=== PATIENT | female | born 1945 | race Caucasian/White ===

== ENCOUNTER 2017-03-04 11:12 | Emergency (ER) | payer MEDICARE, BC ==
[~2017-03-04] VITALS: Ht 167.6 cm; Wt 50.0 kg
[2017-03-04 11:16] VITALS: Ht 167.6 cm; Wt 50.0 kg
[2017-03-04] MEDS ORDERED: SODIUM CHLORIDE 0.9% 1L BAG IV* STA (14:33)
[2017-03-04] MEDS ORDERED: RIFA550T4 PO (14:42)
[2017-03-04] MEDS ORDERED: ARMO250T4 PO (14:42)
[2017-03-04] MEDS ORDERED: MEMA28CA PO (14:42)
[2017-03-04] MEDS ORDERED: ASPI325T4 PO (14:42)
[2017-03-04] MEDS ORDERED: NITR-58 PO (14:43)
[2017-03-04] MEDS ORDERED: DULO60CA6 PO (14:44)
[2017-03-04] MEDS ORDERED: HIPR1 PO (14:44)
[2017-03-04] MEDS ORDERED: EZET10TA3 PO (14:45)
[2017-03-04] MEDS ORDERED: PRAV10TA43 PO (14:45)
[2017-03-04] MEDS ORDERED: LORA-186 PO (14:46)
[2017-03-04] MEDS ORDERED: PRAM1.5T8 PO (14:46)
[2017-03-04] MEDS ORDERED: BEN50 PO (14:47)
[2017-03-04] MEDS ORDERED: DOCU-144 PO (14:47)
[2017-03-04 15:00] LABS: ADD SCAN DIFF NO
[2017-03-04 15:01] LABS: BASOPHILS % 0.3 % (0.0-2.0); EOSINOPHILS % 0.2 % (0.0-7.0); LYMPHOCYTES # 1.6 10^3/ul (0.8-2.9); LYMPHOCYTES % 17.2 % (15.0-51.0); MEAN CORPUSCULAR HGB CONC 30.6 g/dl (32.0-37.0); MEAN CORPUSCULAR VOLUME 91.6 fl (82.0-101.0); MEAN PLATELET VOLUME 10.9 fl (7.4-10.4); MONOCYTE # 0.4 10^3/ul (0.3-0.9); MONOCYTES % 4.4 % (0.0-11.0); NEUTROPHIL # 7.3 10^3/ul (1.6-7.5); NEUTROPHILS % 77.5 % (39.0-77.0); PLATELET COUNT 248 10^3/UL (140-415); RED BLOOD COUNT 5.35 10^6/ul (4.20-5.40); RED CELL DISTRIBUTION WIDTH 14.3 % (11.5-14.5); WHITE BLOOD COUNT 9.4 10^3/ul (4.8-10.8)
[2017-03-04 15:12] LABS: INR 1.04; PARTIAL THROMBOPLASTIN TIME 28.8 Sec (25.0-35.0); PROTIME 13.6 Sec (12.2-14.2); PT RATIO 1.1
[2017-03-04 15:18] LABS: ALANINE AMINOTRANSFERASE 25 IU/L (13-69); ALBUMIN/GLOBULIN RATIO 1.25; ALKALINE PHOSPHATASE 149 IU/L (42-121); ANION GAP 14 (8-16); ASPARTATE AMINO TRANSFERASE 18 IU/L (15-46); BLOOD UREA NITROGEN 30 mg/dl (7-20); CALCIUM 9.6 mg/dl (8.4-10.2); CARBON DIOXIDE 26 mmol/L (21-31); CHLORIDE 113 mmol/L (97-110); CREATININE 0.84 mg/dl (0.44-1.00); GLUCOSE 128 mg/dl (70-220); POTASSIUM 4.2 mmol/L (3.5-5.1); SODIUM 149 mmol/L (135-144)
--- NOTE | 2017-03-04 15:18 | RADRPT ---
PROCEDURE: CT Brain without contrast. CLINICAL INDICATION: Altered mental status. TECHNIQUE: A CT of the brain was performed on a multi-slice CT scanner utilizing axial sections fr om the skull base through the vertex without contrast. Coronal and sagittal reconstructed images wer e provided. One or more of the following does reduction techniques were used: Automated exposure c ontrol; adjustment of the mA and/or kV according to patient size; use of the aorta of reconstruction technique. Images were reviewed on a high-resolution PACS workstation. Exam DLP equals 720.23 mGy- cm. The CTDI equals 45.01 mGy COMPARISON: CT brain 08/26/2008 FINDINGS: Mild diffuse cerebral and cerebellar atrophy is present. There is no evidence of intracranial hemor rhage, mass effect or midline shift. No abnormal intra-axial or extra-axial fluid collections are s een. There are mild deep white matter patchy hypodensities which are nonspecific, but typically see n in small vessel chronic ischemic disease. Bilateral basal ganglia infarcts are grossly stable. Th e density of the brain is otherwise normal and the collins/white matter differentiation is well preserv ed. The osseous structures and visualized paranasal sinuses are unremarkable. Vascular calcificat ions are identified. IMPRESSION: 1. Stable CT appearance of the brain compared to 08/26/2008 without evidence of acute intracranial pathology. 2. Mild diffuse atrophy and deep white matter microangiopathic ischemic changes. 3. Bilateral basal ganglia infarcts are unchanged. 4. Atherosclerotic calcifications of the intracranial carotid arteries. RPTAT: KK .William Garduno MD, Date Time Electronically viewed and signed by .William Garduno MD, MD on 03/04/2017 15:18 .B/
[2017-03-04 15:19] LABS: ADD UMIC YES; URINE BILIRUBIN (Dip) NEGATIVE (NEGATIVE); URINE BLOOD (Dip) NEGATIVE (NEGATIVE); URINE COLOR AMBER (YELLOW); URINE GLUCOSE (Dip) NEGATIVE (NEGATIVE); URINE KETONES (Dip) TRACE (NEGATIVE); URINE LEUKOCYTE ESTERASE (Dip) TRACE (NEGATIVE); URINE NITRITE (Dip) NEGATIVE (NEGATIVE); URINE TOTAL PROTEIN (Dip) 1+ (NEGATIVE); URINE UROBILINOGEN (Dip) 0.2 E.U./dL (0.1-1.0)
[2017-03-04 15:23] LABS: ALBUMIN 3.9 g/dl (3.3-4.9); BILIRUBIN,INDIRECT 0.2 mg/dl (0-1.1); BILIRUBIN,TOTAL 0.2 mg/dl (0.2-1.3)
--- NOTE | 2017-03-04 15:23 | RADRPT ---
PROCEDURE: XR Chest. CLINICAL INDICATION: Shortness of breath. Altered mental status. TECHNIQUE: Single frontal view. COMPARISON: 08/10/2008. FINDINGS: The lungs are clear. The heart size is normal. There is no pleural effusion or pneumothorax. Surgical clips are present in the right axilla. IMPRESSION: 1. Prior right axillary surgery. 2. Otherwise normal chest radiograph. RPTAT: QQ .Trace Watt MD, MD Date Time Electronically viewed and signed by .Trace Watt MD, on 03/04/2017 15:23 .R/
[2017-03-04 15:33] LABS: TROPONIN-I < 0.012 ng/ml (0.00-0.12)
--- NOTE | 2017-03-04 16:03 | ERA ---
ER Documentation Chief Complaint Date/Time DATE: 03/04/17 TIME: 16:01 Chief Complaint WEAKNESS, POOR APPETITE SENT FROM PMD FOR POSSIBLE UTI HPI This is a 71-year-old female history of stroke, dementia, recurrent UTIs who sent in by her primary care physician Dr. Bonner. It appears the patient has had generalized weakness and poor appetite for the past several days. Her is concerned that she is more debilitated and more weak than usual. He denies any falls, no report of chest pain, fevers or chills. No focal weakness is noted. ROS All systems reviewed and are negative except as per history of present illness. Medications Home Meds Active Scripts Ciprofloxacin Hcl* (Ciprofloxacin Hcl*) 500 Mg Tablet, 500 MG PO BID for 5 Days , TAB Prov:BRUCE VILLALOBOS MD 03/04/17 Reported Medications Docusate Sodium* (Colace*) 100 Mg Capsule, 100 MG PO BID, #60 CAP 03/04/17 Diphenhydramine Hcl* (Benadryl*) 50 Mg Cap, 50 MG PO QHS Y for SLEEP, CAP 03/04/17 Loratadine* (Claritin*) 10 Mg Tablet, 10 MG PO DAILY, TAB 03/04/17 Pramipexole* (Mirapex*) 1.5 Mg Tablet, 2.5 MG PO DAILY, TAB 03/04/17 Pravastatin Sodium* (Pravastatin Sodium*) 10 Mg Tablet, 10 MG PO HS, TAB 03/04/17 Ezetimibe* (Zetia*) 10 Mg Tablet, 10 MG PO HS, TAB 03/04/17 Duloxetine Hcl* (Cymbalta*) 60 Mg Capsule.dr, 60 MG PO DAILY, CAP 03/04/17 Methenamine Hippurate* (Hiprex*) 1 Gm Tab, 1 GM PO BID, TAB 03/04/17 Nitrofurantoin Monohyd Macrocr* (Macrobid*) 100 Mg Capsr, 100 MG PO DAILY, CAP 03/04/17 Aspirin* (Aspirin*) 325 Mg Tablet, 325 MG PO DAILY, TAB 03/04/17 Memantine* (Namenda* XR) 28 Mg Cap.spr.24, 28 MG PO DAILY, #30 TAB 03/04/17 Armodafinil (Nuvigil) 250 Mg Tablet, 250 MG PO DAILY, TAB 03/04/17 Rifaximin* (Xifaxan*) 550 Mg Tablet, 550 MG PO BID, TAB 03/04/17 Allergies Allergies: Coded Allergies: No Known Allergy (Unverified , 03/04/17) PMhx/Soc History of Surgery: Yes (carpal tunnel sx, appendectomy) Anesthesia Reaction: No Hx Neurological Disorder: Yes (previous stroke) Hx Respiratory Disorders: No Hx Cardiac Disorders: No Hx Psychiatric Problems: No Hx Miscellaneous Medical Probl: No Hx Alcohol Use: No Hx Substance Use: No Hx Tobacco Use: No Smoking Status: Former smoker FmHx Family History: No diabetes Physical Exam Vitals Vital Signs Date Time Temp Pulse Resp B/P Pulse Ox O2 Delivery O2 Flow Rate FiO2 03/04/17 14:52 66 16 123/80 95 Room Air 03/04/17 11:16 98.5 99 18 124/73 94 Physical Exam General: Cachectic elderly female Head: Normocephalic, atraumatic. Eyes: Pupils equally reactive, EOM intact ENT: Dry mucous membranes Neck: Supple, no lymphadenopathy Respiratory: Lungs clear bilaterally, no distress Cardiovascular: RRR, no murmurs, rubs, or gallops Abdominal: Soft, non-tender, non-distended, no peritoneal signs : Deferred MSK: No edema, no unilateral swelling, 4/5 strength Neurologic: Alert and oriented, moving all extremities with generalized weakness , normal speech, no focal weakness, no cerebellar signs Skin: No rash Psych: Normal mood Result Diagram: 03/04/17 1447 03/04/17 1447 Results 24 hrs Laboratory Tests Test 03/04/17 14:47 White Blood Count 9.410^3/ul Red Blood Count 5.3510^6/ul Hemoglobin 15.0g/dl Hematocrit 49.0% Mean Corpuscular Volume 91.6fl Mean Corpuscular Hemoglobin 28.0pg Mean Corpuscular Hemoglobin Concent 30.6g/dl Red Cell Distribution Width 14.3% Platelet Count 79894^3/UL Mean Platelet Volume 10.9fl Neutrophils % 77.5% Lymphocytes % 17.2% Monocytes % 4.4% Eosinophils % 0.2% Basophils % 0.3% Nucleated Red Blood Cells % 0.0/100WBC Neutrophils # 7.310^3/ul Lymphocytes # 1.610^3/ul Monocytes # 0.410^3/ul Eosinophils # 0.010^3/ul Basophils # 0.010^3/ul Nucleated Red Blood Cells # 0.010^3/ul Prothrombin Time 13.6Sec Prothrombin Time Ratio 1.1 INR International Normalized Ratio 1.04 Activated Partial Thromboplast Time 28.8Sec Urine Color TIMMY Urine Clarity SLIGHTLY CLOUDY Urine pH 5.5 Urine Specific [place] 1.025 Urine Ketones TRACE Urine Nitrite NEGATIVE Urine Bilirubin NEGATIVE Urine Urobilinogen 0.2 E.U./dL Urine Leukocyte Esterase TRACE Urine Microscopic RBC 2-5/HPF Urine Microscopic WBC 5-10/HPF Urine Squamous Epithelial Cells FEW Urine Transitional Epithelial Cells FEW Urine Bacteria FEW Urine Hemoglobin NEGATIVE Urine Glucose NEGATIVE% Urine Total Protein 1+ Sodium Level 149mmol/L Potassium Level 4.2mmol/L Chloride Level 113mmol/L Carbon Dioxide Level 26mmol/L Anion Gap 14 Blood Urea Nitrogen 30mg/dl Creatinine 0.84mg/dl Glucose Level 128mg/dl Lactic Acid Level 2.2mmol/L Calcium Level 9.6mg/dl Total Bilirubin 0.2mg/dl Direct Bilirubin 0.00mg/dl Indirect Bilirubin 0.2mg/dl Aspartate Amino Transf (AST/SGOT) 18IU/L Alanine Aminotransferase (ALT/SGPT) 25IU/L Alkaline Phosphatase 149IU/L Troponin I < 0.012ng/ml Total Protein 7.0g/dl Albumin 3.9g/dl Globulin 3.10g/dl Albumin/Globulin Ratio 1.25 Free Thyroxine Index 2.07ug/ml Thyroxine (T4) 7.4ug/dl Triiodothyronine (T3) Uptake 28.0% Current Medications Medications (Trade) Dose Ordered Sig/Brandy Route PRN Reason Start Time Stop Time Status Last Admin Dose Admin Sodium Chloride (NS) 1,550 ml BOLUS OVER 2 HOURS STAT IV* 03/04/17 14:33 03/04/17 14:35 DC 03/04/17 15:17 Procedures/MDM EKG, MONITORS, & DIAGNOSTIC IMAGING: EKG: I reviewed and interpreted a 12-lead EKG. Rhythm: Normal sinus rhythm Ectopy: None Intervals: No abnormalities ST segments: No elevations or depressions T waves: No contiguous inversions Chest x-ray: I reviewed and interpreted a 1 view of the chest Mediastinum: No enlargement Cardiac silhouette: No cardiomegaly Airspace: Clear lung lainez bilaterally without evidence of pneumothorax Bones: No evidence of fracture CT brain: Radiology reports no acute intracranial hemorrhage. LAB INTERPRETATION: Normal lactic acid, no leukocytosis, negative troponin MEDICAL DECISION MAKING: The patient presents with generalized weakness. Given her age and past medical history of broad differential exists that include stroke, dehydration, electrolyte abnormalities, acute coronary syndrome, urinary tract infection among others. This could also be a progression of her chronic disabilities including dementia. The patient does appear to be dehydrated and will benefit from fluid resuscitation, sepsis screening etc. ER COURSE: The patient was given a 30/kg bolus of saline. Laboratory testing is reassuring with a normal white count and normal lactic acid. A negative troponin. The patient and family are extremely eager to go home. I spoke to Dr. Bonner. He would like to initiate ciprofloxacin for possible UTI. Cultures been sent. He will follow-up with the patient on an outpatient basis. Patient continues to be well-appearing in the emergency department. I kept the patient and/or family informed of laboratory and diagnostic imaging results throughout the emergency room course. DISPOSITION PLAN: We discussed follow up with the patient's primary care doctor within 24 to 48 hours as needed. We also discussed return to the emergency room for worsening symptoms or worsening condition. Outpatient referral: [None required] Discharge Medications: Ciprofloxacin CONSULTATION: Dr. Bonner was notified. Departure Diagnosis: Primary Impression: Dehydration Additional Impression: Acute hypernatremia Condition: Stable BRUCE VILLALOBOS MD March 04, 2017 16:03
[2017-03-04 16:20] LABS: SQUAMOUS EPITHELIAL CELL,UR FEW; TRANSITIONAL EPI CELLS,URINE FEW
[2017-03-04 16:21] LABS: BACTERIA,URINE FEW
[2017-03-04] MEDS ORDERED: CIPR500T4 PO (16:42)
[2017-03-04 16:52] VITALS: BP 108/66; PULSE 81; RESP 16; TEMP 97.9
== END 2017-03-04 17:32 | disposition home or self-care (01) ==
LOC: E/R 11:12
DX: E86.0 Dehydration (principal); E87.0 Hyperosmolality and hypernatremia; R40.2142 Coma scale, eyes open, spontaneous, at arrival to emergency department; R40.2252 Coma scale, best verbal response, oriented, at arrival to emergency department; R40.2362 Coma scale, best motor response, obeys commands, at arrival to emergency department; R06.02 Shortness of breath; R93.0 Abnormal findings on diagnostic imaging of skull and head, not elsewhere classified; Z87.891 Personal history of nicotine dependence; Z79.82 Long term (current) use of aspirin
CPT/HCPCS: 36415; 70450; 71010; 80053; 81001; 83605; 84436; 84479; 84484; 85025; 85610; 85730; 87040; 87086; 99285; J7030; 81003

== ENCOUNTER 2019-03-15 09:39 | Inpatient (IN) | payer MEDICARE, BC ==
[~2019-03-15] VITALS: Ht 167.6 cm; Wt 48.6 kg
[~2019-03-15 09:39] MED LIST: ARMO250T2 PO; ASPI325T30 PO; BEN50 PO; CIPR500T4 PO; DOCU-144 PO; DULO60CA6 PO; EZET10TA31 PO; LORA-186 PO; MEMA28CA PO; METH1TAB58 PO; NITR-58 PO; PRAM1.5T8 PO; PRAV10TA43 PO; RIFA550T4 PO
[2019-03-15] MEDS ORDERED: SOD CHLORIDE 0.9% 1,000 ML IV STA (10:29)
[2019-03-15] MEDS ORDERED: LACTATED RINGER'S 1,000 ML IV STA (10:29)
--- NOTE | 2019-03-15 10:33 | ERD ---
ER Documentation Chief Complaint Chief Complaint SENT FROM DR REILLY'S OFFICE D/T LOW BP; PCP REQUESTS R/O UTI HPI 73-year-old woman referred here by her PMDs office for suspected dehydration and hypotension while in the office today for a checkup. Her son is at the bedside and states she has been feeling weak for about 1 day, her last UA performed about 10 days ago was unremarkable. She has had no chest pain or shortness of breath, no loss of consciousness, no blood per rectum or melena, no complaints of vomiting or diarrhea ROS All systems reviewed and are negative except as per history of present illness. Medications Home Meds Reported Medications Diphenhydramine Hcl* (Diphenhydramine Hcl*) 25 Mg Capsule, 25 MG PO TID PRN for ITCHING, CAP 03/15/19 Nitrofurantoin Monohyd Macrocr* (Macrobid*) 100 Mg Capsr, 100 MG PO DAILY, CAP 03/15/19 Pravastatin Sodium* (Pravastatin Sodium*) 20 Mg Tablet, 20 MG PO HS, TAB 03/15/19 Potassium Chloride* (K-Dur*) 10 Meq Tab.prt.sr, 10 MEQ PO DAILY, TAB 03/15/19 Pramipexole* (Pramipexole*) 0.25 Mg Tablet, 0.25 MG PO HS, TAB 03/15/19 Denosumab (Prolia) 60 Mg/1 Ml Disp.syrin, 60 MG SQ Q 6 MONTHS 03/15/19 Carbidopa-Levodopa* (Sinemet CR*) 50-200 Mg Tabsr, 0.5 TAB PO DAILY, TAB 03/15/19 Ergocalciferol (Vitamin D2) (VITAMIN D2) 50,000 Unit Capsule, 20779 UNIT PO Q28D, CAP 03/15/19 Rifaximin* (Xifaxan*) 550 Mg Tablet, 550 MG PO BID, TAB 03/15/19 Methenamine Hippurate* (Hiprex*) 1 Gm Tab, 1 GM PO BID, TAB 03/15/19 Memantine* (Namenda* XR) 28 Mg Cap.spr.24, 28 MG PO DAILY, #30 TAB 03/15/19 Ezetimibe* (Zetia*) 10 Mg Tablet, 10 MG PO HS, TAB 03/15/19 Duloxetine Hcl* (Cymbalta*) 60 Mg Capsule.dr, 60 MG PO DAILY, CAP 03/15/19 Aspirin* (Aspirin* EC) 325 Mg Tab, 325 MG PO DAILY, TAB 03/15/19 Armodafinil (Nuvigil) 250 Mg Tablet, 250 MG PO DAILY, TAB 03/15/19 Discontinued Reported Medications Loratadine* (Loratadine*) 10 Mg Tablet, 10 MG PO DAILY, #30 TAB 03/15/19 Diphenhydramine Hcl* (Benadryl*) 50 Mg Cap, 50 MG PO QHS PRN for ITCHING, CAP 03/15/19 Docusate Sodium* (Colace*) 100 Mg Capsule, 100 MG PO BID, #60 CAP 03/04/17 Diphenhydramine Hcl* (Benadryl*) 50 Mg Cap, 50 MG PO QHS PRN for SLEEP, CAP 03/04/17 Loratadine* (Claritin*) 10 Mg Tablet, 10 MG PO DAILY, TAB 03/04/17 Pramipexole* (Mirapex*) 1.5 Mg Tablet, 2.5 MG PO DAILY, TAB 03/04/17 Pravastatin Sodium* (Pravastatin Sodium*) 10 Mg Tablet, 10 MG PO HS, TAB 03/04/17 Ezetimibe* (Zetia*) 10 Mg Tablet, 10 MG PO HS, TAB 03/04/17 Duloxetine Hcl* (Cymbalta*) 60 Mg Capsule.dr, 60 MG PO DAILY, CAP 03/04/17 Methenamine Hippurate* (Hiprex*) 1 Gm Tab, 1 GM PO BID, TAB 03/04/17 Nitrofurantoin Monohyd Macrocr* (Macrobid*) 100 Mg Capsr, 100 MG PO DAILY, CAP 03/04/17 Aspirin* (Aspirin*) 325 Mg Tablet, 325 MG PO DAILY, TAB 03/04/17 Memantine* (Namenda* XR) 28 Mg Cap.spr.24, 28 MG PO DAILY, #30 TAB 03/04/17 Armodafinil (Nuvigil) 250 Mg Tablet, 250 MG PO DAILY, TAB 03/04/17 Rifaximin* (Xifaxan*) 550 Mg Tablet, 550 MG PO BID, TAB 03/04/17 Discontinued Scripts Ciprofloxacin Hcl* (Ciprofloxacin Hcl*) 500 Mg Tablet, 500 MG PO BID for 5 Days, TAB Prov:BRUCE VILLALOBOS MD 03/04/17 Allergies Allergies: Coded Allergies: No Known Allergy (Unverified , 03/15/19) PMhx/Soc History of strokes, dementia, dysphagia with PEG tube placement, UTIs History of Surgery: Yes (carpal tunnel sx, appendectomy) Anesthesia Reaction: No Hx Neurological Disorder: Yes (previous stroke) Hx Respiratory Disorders: No Hx Cardiac Disorders: No Hx Psychiatric Problems: No Hx Miscellaneous Medical Probl: No Hx Alcohol Use: No Hx Substance Use: No Hx Tobacco Use: No Smoking Status: Never smoker Physical Exam Vitals Vital Signs Date Temp Pulse Resp B/P (MAP) Pulse Ox O2 O2 Flow FiO2 Time Delivery Rate 03/15/19 76 18 118/59 98 Room Air 12:41 (78) 03/15/19 97.1 86 16 119/70 97 09:42 (86) Physical Exam GENERAL: Elderly, chronically debilitated woman, appears dehydrated, nontoxic, afebrile HEENT: Dry mucous membranes, pink conjunctiva, no cervical spine tenderness or step-off deformities NEURO: Eyes open, responsive to verbal stimuli, pupils equal round reactive to light, nonverbal, able to follow commands CARDIAC: Regular rate and rhythm, no murmurs rubs or gallops LUNGS: Clear bilaterally no wheezing crackles or stridor ABDOMEN: Soft nontender, no guarding, no rigidity, no rebound, no psoas sign no obturator sign. SKIN: Warm and dry to touch, no abrasions, contusions, or hematomas, no lacerations, no ecchymosis, no target lesions, and without ulcers EXTREMITIES: No clubbing cyanosis or edema, calves are bilaterally symmetrical, no Homans sign, no popliteal cord sign. Distal pulses equal and bilateral PSYCH: Normal affect without agitation or irritability Result Diagram: 03/15/19 1103 03/15/19 1103 Results 24 hrs Laboratory Tests Test 03/15/19 11:03 03/15/19 11:30 White Blood Count 9.6 10^3/ul Red Blood Count 5.35 10^6/ul Hemoglobin 15.4 g/dl Hematocrit 49.7 % Mean Corpuscular Volume 92.9 fl Mean Corpuscular Hemoglobin 28.8 pg Mean Corpuscular Hemoglobin Concent 31.0 g/dl Red Cell Distribution Width 13.3 % Platelet Count 233 10^3/UL Mean Platelet Volume 10.4 fl Immature Granulocytes % 0.400 % Neutrophils % 76.7 % Lymphocytes % 16.3 % Monocytes % 5.0 % Eosinophils % 1.1 % Basophils % 0.5 % Nucleated Red Blood Cells % 0.0 /100WBC Immature Granulocytes # 0.040 10^3/ul Neutrophils # 7.4 10^3/ul Lymphocytes # 1.6 10^3/ul Monocytes # 0.5 10^3/ul Eosinophils # 0.1 10^3/ul Basophils # 0.1 10^3/ul Nucleated Red Blood Cells # 0.0 10^3/ul Sodium Level 146 mmol/L Potassium Level 4.1 mmol/L Chloride Level 105 mmol/L Carbon Dioxide Level 32 mmol/L Anion Gap 9 Blood Urea Nitrogen 31 mg/dl Creatinine 0.76 mg/dl Est Glomerular Filtrat Rate mL/min mL/min Glucose Level 101 mg/dl Calcium Level 9.1 mg/dl Total Bilirubin 0.4 mg/dl Direct Bilirubin 0.00 mg/dl Indirect Bilirubin 0.4 mg/dl Aspartate Amino Transf (AST/SGOT) 28 IU/L Alanine Aminotransferase (ALT/SGPT) 28 IU/L Alkaline Phosphatase 103 IU/L Troponin I < 0.012 ng/ml Total Protein 7.8 g/dl Albumin 4.0 g/dl Globulin 3.80 g/dl Albumin/Globulin Ratio 1.05 Lipase 137 U/L Urine Color YELLOW Urine Clarity CLOUDY Urine pH 7.0 Urine Specific [place] 1.020 Urine Ketones NEGATIVE mg/dL Urine Nitrite NEGATIVE mg/dL Urine Bilirubin NEGATIVE mg/dL Urine Urobilinogen NEGATIVE mg/dL Urine Leukocyte Esterase 3+ Nhi/ul Urine Microscopic RBC 81 /HPF Urine Microscopic WBC > 182 /HPF Urine Squamous Epithelial Cells FEW /HPF Urine Bacteria FEW /HPF Urine Mucus FEW /HPF Urine Yeast (Budding) FEW /HPF Urine Hemoglobin 1+ mg/dL Urine Glucose NEGATIVE mg/dL Urine Total Protein NEGATIVE mg/dl Current Medications Medications Dose Sig/Brandy Start Time Status Last (Trade) Ordered Route PRN Stop Time Admin Dose Reason Admin Sodium 1,000 ml @ Q1H STAT 03/15/19 DC 03/15/19 Chloride 1,000 mls/hr IV 10:29 10:56 03/15/19 11:28 Lactated 1,000 ml @ Q1H STAT 03/15/19 DC 03/15/19 Ringer's 1,000 mls/hr IV 10:29 10:55 03/15/19 11:28 Ceftriaxone 50 ml @ ONCE ONCE 03/15/19 Sodium 100 mls/hr IVPB 13:00 03/15/19 13:29 Procedures/MDM IV line was established patient was placed on satellite project site monitor rhythm strip revealed a sinus rhythm at about 80 bpm with upright P and T waves. Patient was afebrile I administered 2 L IV crystalloid for dehydration Chest X-ray 1V Interpreted by me: Soft Tissue: No acute abnormalities Bones: No acute abnormalities Mediastinum/Cardiac Silhouette/Lungs: No acute abnormalities EKG performed, read by me: 75 bpm, normal sinus rhythm, normal axis, no acute ST segment changes, narrow QRS complex, with good R-wave progression in precordial leads. CBC is normal, electrolytes revealed dehydration with a BUN/creatinine 31/0.8, liver function tests normal, troponin negative, urine analysis positive for infection I administered ceftriaxone 1 g IV. I do not suspect sepsis and patient's blood pressure has been normal here although she is dehydrated and has a UTI and given her past medical history I will admit her to [facility] for continued medical management and IV antibiotics. I spoke to her PMD who also recommended admission and inpatient management Departure Diagnosis: Primary Impression: Acute dehydration Additional Impressions: Acute UTI Dementia Dementia type: unspecified type Dementia behavioral disturbance: without behavioral disturbance Qualified Codes: F03.90 - Unspecified dementia without behavioral disturbance Condition: SALOME Siddiqi MD March 15, 2019 10:33
[2019-03-15] MEDS ORDERED: ARMO250T2 PO (11:48)
[2019-03-15] MEDS ORDERED: ASPI325T32 PO (11:48)
[2019-03-15] MEDS ORDERED: BEN50 PO (11:49)
[2019-03-15] MEDS ORDERED: EZET10TA31 PO (11:50)
[2019-03-15] MEDS ORDERED: DULO60CA6 PO (11:50)
[2019-03-15] MEDS ORDERED: LORA10TA3 PO (11:51)
[2019-03-15] MEDS ORDERED: METH1TAB58 PO (11:51)
[2019-03-15] MEDS ORDERED: MEMA28CA PO (11:51)
[2019-03-15] MEDS ORDERED: RIFA550T4 PO (11:53)
[2019-03-15] MEDS ORDERED: ERGO500013 PO (11:54)
[2019-03-15] MEDS ORDERED: SIN50200 PO (11:55)
[2019-03-15] MEDS ORDERED: DENO60DI SQ (11:56)
[2019-03-15] MEDS ORDERED: PRAM0.25 PO (11:56)
[2019-03-15] MEDS ORDERED: POTA10TA37 PO (11:59)
[2019-03-15] MEDS ORDERED: PRAV20TA63 PO (12:00)
[2019-03-15] MEDS ORDERED: NITR-58 PO (12:01)
[2019-03-15] MEDS ORDERED: DIPH25CA6 PO (12:03)
[2019-03-15] MEDS ORDERED: CEFTRIAXONE 1 GM/50 ML (PMX) 50 ML IVPB ONE (13:00)
[2019-03-15] MEDS ORDERED: ACETAMINOPHEN 325 MG TAB PO PRN (17:30)
[2019-03-15] MEDS ORDERED: NACL 0.9% 3 ML SYG IV SCH (17:30)
[2019-03-15] MEDS ORDERED: ONDANSETRON 4 MG INJ IV PRN (17:30)
[2019-03-15] MEDS ORDERED: DIPHENHYDRAMINE 25 MG CAP PO PRN (18:00)
[2019-03-15 18:15] VITALS: BP 114/57; PULSE 62
[2019-03-15 18:28] VITALS: BMI 18.6
[2019-03-15] MEDS ORDERED: DIPHENHYDRAMINE 25 MG CAP GTB PRN (18:30)
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
[2019-03-15] MEDS: SOD CHLORIDE 0.45% 1,000 ML IV SCH (19:52)
[2019-03-15 20:33] VITALS: BP 104/54; PULSE 64; RESP 16
[2019-03-15] MEDS ORDERED: NON-FORMULARY/PATIENT OWN MED (Pravastatin Sodium* 20 MG) PO SCH (21:00)
[2019-03-15] MEDS ORDERED: PRAMIPEXOLE 0.25 MG TAB PO SCH (21:00)
[2019-03-15] MEDS ORDERED: RIFAXIMIN 550 MG TAB PO SCH (21:00)
[2019-03-15] MEDS: PRAMIPEXOLE 0.25 MG TAB GTB SCH (22:42)
[2019-03-15] MEDS: EZETIMIBE 10 MG TAB PO SCH (22:42)
[2019-03-15] MEDS: CARBIDOPA/LEVODOPA 25-100 (CR) TAB PO SCH (22:42)
[2019-03-15] MEDS: MEMANTINE 10 MG TAB GTB SCH (22:42)
[2019-03-15] MEDS: RIFAXIMIN 550 MG TAB GTB SCH (22:42)
[2019-03-15] MEDS: ATORVASTATIN 10 MG TAB GTB SCH (22:43)
[2019-03-15] MEDS ORDERED: ACETAMINOPHEN 650MG/20.3ML CUP GTB PRN (23:30)
[2019-03-16 02:18] VITALS: BP 107/57; PULSE 66; RESP 16
[2019-03-16] MEDS: SOD CHLORIDE 0.45% 1,000 ML IV SCH ×2 (05:51→16:43)
[2019-03-16 07:18] VITALS: BP 118/58; PULSE 64; RESP 18
[2019-03-16] MEDS: MEMANTINE 10 MG TAB GTB SCH ×2 (08:45→21:30)
[2019-03-16] MEDS: RIFAXIMIN 550 MG TAB GTB SCH ×2 (08:46→21:29)
[2019-03-16] MEDS: DULOXETINE 30 MG CAP DR PO SCH (08:46)
[2019-03-16] MEDS: CARBIDOPA/LEVODOPA 25-100 (CR) TAB PO SCH ×2 (08:46→21:30)
[2019-03-16] MEDS: ASPIRIN (EC) 325 MG TAB PO SCH (08:47)
[2019-03-16] MEDS: ENOXAPARIN 40 MG/0.4 ML SYG SC SCH (08:48)
[2019-03-16] MEDS ORDERED: ERGOCALCIFEROL 50,000 UNIT CAP PO SCH (09:00)
[2019-03-16] MEDS ORDERED: ARMODAFINIL 250 MG PO SCH (09:00)
[2019-03-16] MEDS ORDERED: PATIENT'S OWN MEDICATION XX SCH (09:00)
[2019-03-16] MEDS ORDERED: CEFTRIAXONE 1 GM INJ IM ONE (09:00)
[2019-03-16] MEDS ORDERED: NON-FORMULARY/PATIENT OWN MED (Memantine* (Namenda* XR) 28 MG) PO SCH (09:00)
[2019-03-16] MEDS ORDERED: CARBIDOPA/LEVODOPA 50-200 (CR) TAB PO SCH (09:00)
--- NOTE | 2019-03-16 09:12 | PN ---
Date/Time of Note Date/Time of Note DATE: 03/16/19 TIME: 09:05 Assessment/Plan VTE Prophylaxis Risk score (from Ns)>0 risk: 5 SCD applied (from Ns): Yes Pharmacological prophylaxis: fondaparinux Lines/Catheters IV Catheter Type (from [facility]): Peripheral IV Urinary Cath still in place: Yes (from ER ) Reason Cath still needed: urinary retention Assessment/Plan Hospital Course 1. Urinary tract infection. She has had recurrent urinary tract infection and has been on suppressive therapy. She is now on IV antibiotics. Awaiting culture of urine and sensitivities. 2. Dehydration with hypotension. She seems overall improved. She has been getting IV fluids overnight. Labs are ordered for this morning. 3. 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 Her mental status is improved from yesterday. Will start discharge planning. Consider [facility]. 4. Depression. 5. Dysphagia with gastric feeding tube. She is going to start tube feeding today. 6. Hyperlipidemia. 7. History of hepatic encephalopathy. She is on Xifaxan for this problem . Result Diagram: 03/15/19 1103 03/15/19 1103 Results 24hrs Laboratory Tests Test 03/15/19 11:03 03/15/19 11:30 03/16/19 04:47 White Blood Count 9.6 Red Blood Count 5.35 Hemoglobin 15.4 Hematocrit 49.7 H Mean Corpuscular Volume 92.9 Mean Corpuscular Hemoglobin 28.8 L Mean Corpuscular Hemoglobin Concent 31.0 L Red Cell Distribution Width 13.3 Platelet Count 233 Mean Platelet Volume 10.4 Immature Granulocytes % 0.400 Neutrophils % 76.7 Lymphocytes % 16.3 Monocytes % 5.0 Eosinophils % 1.1 Basophils % 0.5 Nucleated Red Blood Cells % 0.0 Immature Granulocytes # 0.040 H Neutrophils # 7.4 Lymphocytes # 1.6 Monocytes # 0.5 Eosinophils # 0.1 Basophils # 0.1 Nucleated Red Blood Cells # 0.0 Sodium Level 146 H Potassium Level 4.1 Chloride Level 105 Carbon Dioxide Level 32 H Anion Gap 9 Blood Urea Nitrogen 31 H Creatinine 0.76 Est Glomerular Filtrat Rate mL/min Glucose Level 101 Calcium Level 9.1 Total Bilirubin 0.4 Direct Bilirubin 0.00 Indirect Bilirubin 0.4 Aspartate Amino Transf (AST/SGOT) 28 Alanine Aminotransferase (ALT/SGPT) 28 Alkaline Phosphatase 103 Troponin I < 0.012 Total Protein 7.8 Albumin 4.0 Globulin 3.80 H Albumin/Globulin Ratio 1.05 Lipase 137 Urine Color YELLOW Urine Clarity CLOUDY A Urine pH 7.0 Urine Specific [place] 1.020 Urine Ketones NEGATIVE Urine Nitrite NEGATIVE Urine Bilirubin NEGATIVE Urine Urobilinogen NEGATIVE Urine Leukocyte Esterase 3+ H Urine Microscopic RBC 81 H Urine Microscopic WBC > 182 H Urine Squamous Epithelial Cells FEW Urine Bacteria FEW A Urine Mucus FEW A Urine Yeast (Budding) FEW A Urine Hemoglobin 1+ H Urine Glucose NEGATIVE Urine Total Protein NEGATIVE Hemoglobin A1c 5.3 Subjective 24 Hr Interval Summary Free Text/Dictation Sultana is awake and alert. She has no complaints. She denies pain. Constitutional: no complaints, improved Cardiovascular: no complaints Gastrointestinal: no complaints Genitourinary: no complaints Musculoskeletal: no complaints Skin: no complaints Neurologic: confusion Exam/Review of Systems Exam Vitals Vital Signs Date Temp Pulse Resp B/P (MAP) Pulse Ox O2 O2 Flow FiO2 Time Delivery Rate 03/16/19 97.8 64 18 118/58 100 Nasal 2.0 07:18 (78) Cannula Intake and Output 03/15/19 03/15/19 03/16/19 1515:00 23:00 07:00 IntakeIntake Total 1000 ml BalanceBalance 1000 ml Constitutional: alert, frail Respiratory: clear to auscultation, normal air movement Cardiovascular: regular rate and rhythm Gastrointestinal: soft, non-tender Musculoskeletal: nl extremities to inspection Results Results 24hrs Laboratory Tests Test 03/15/19 11:03 03/15/19 11:30 03/16/19 04:47 White Blood Count 9.6 Red Blood Count 5.35 Hemoglobin 15.4 Hematocrit 49.7 H Mean Corpuscular Volume 92.9 Mean Corpuscular Hemoglobin 28.8 L Mean Corpuscular Hemoglobin Concent 31.0 L Red Cell Distribution Width 13.3 Platelet Count 233 Mean Platelet Volume 10.4 Immature Granulocytes % 0.400 Neutrophils % 76.7 Lymphocytes % 16.3 Monocytes % 5.0 Eosinophils % 1.1 Basophils % 0.5 Nucleated Red Blood Cells % 0.0 Immature Granulocytes # 0.040 H Neutrophils # 7.4 Lymphocytes # 1.6 Monocytes # 0.5 Eosinophils # 0.1 Basophils # 0.1 Nucleated Red Blood Cells # 0.0 Sodium Level 146 H Potassium Level 4.1 Chloride Level 105 Carbon Dioxide Level 32 H Anion Gap 9 Blood Urea Nitrogen 31 H Creatinine 0.76 Est Glomerular Filtrat Rate mL/min Glucose Level 101 Calcium Level 9.1 Total Bilirubin 0.4 Direct Bilirubin 0.00 Indirect Bilirubin 0.4 Aspartate Amino Transf (AST/SGOT) 28 Alanine Aminotransferase (ALT/SGPT) 28 Alkaline Phosphatase 103 Troponin I < 0.012 Total Protein 7.8 Albumin 4.0 Globulin 3.80 H Albumin/Globulin Ratio 1.05 Lipase 137 Urine Color YELLOW Urine Clarity CLOUDY A Urine pH 7.0 Urine Specific [place] 1.020 Urine Ketones NEGATIVE Urine Nitrite NEGATIVE Urine Bilirubin NEGATIVE Urine Urobilinogen NEGATIVE Urine Leukocyte Esterase 3+ H Urine Microscopic RBC 81 H Urine Microscopic WBC > 182 H Urine Squamous Epithelial Cells FEW Urine Bacteria FEW A Urine Mucus FEW A Urine Yeast (Budding) FEW A Urine Hemoglobin 1+ H Urine Glucose NEGATIVE Urine Total Protein NEGATIVE Hemoglobin A1c 5.3 Medications Medication Current Medications Sodium Chloride 1,000 ml @ 100 mls/hr Q10H IV Last administered on 03/16/19at 05:51; Admin Dose 100 MLS/HR; Start 03/15/19 at 19:00 IV Flush (NS 3 ml) 3 ml PER PROTOCOL IV ; Start 03/15/19 at 17:30 Ondansetron HCl (Zofran Inj) 4 mg Q6H PRN IV NAUSEA/VOMITING; Start 03/15/19 at 17:30 Enoxaparin Sodium (Lovenox) 40 mg DAILY SC Last administered on 03/16/19at 08:48; Admin Dose 40 MG; Start 03/16/19 at 09:00 Aspirin (Ecotrin) 325 mg DAILY PO Last administered on 03/16/19at 08:47; Admin Dose 325 MG; Start 03/16/19 at 09:00 Duloxetine HCl (Cymbalta) 60 mg DAILY PO Last administered on 03/16/19 08:46; Admin Dose 60 MG; Start 03/16/19 at 09:00 Ergocalciferol (Drisdol) 50,000 unit Q28D PO Last administered on 03/16/19 08:46; Admin Dose 50,000 UNIT; Start 03/16/19 at 09:00 EZETIMIBE (Zetia) 10 mg HS PO Last administered on 03/15/19at 22:42; Admin Dose 10 MG; Start 03/15/19 at 21:00 Acetaminophen (Tylenol Liquid) 650 mg Q6H PRN GTB .PAIN 1-3 OR TEMP; Start 03/15/19 at 23:30 Diphenhydramine HCl (Benadryl) 25 mg TID PRN GTB ITCHING; Start 03/15/19 at 18:30 Pramipexole (Mirapex) 0.25 mg HS GTB Last administered on 03/15/19at 22:42; Admin Dose 0.25 MG; Start 03/15/19 at 21:00 Rifaximin (Xifaxan) 550 mg BID GTB Last administered on 03/16/19 08:46; Admin Dose 550 MG; Start 03/15/19 at 21:00 Miscellaneous Information 250 mg DAILY G-TUBE ; Start 03/16/19 at 09:00; Status UNV Memantine (Namenda) 10 mg BID GTB Last administered on 03/16/19 08:45; Admin Dose 10 MG; Start 03/15/19 at 21:00 Atorvastatin Calcium (Lipitor) 10 mg HS GTB Last administered on 03/15/19at 22:43; Admin Dose 10 MG; Start 03/15/19 at 21:00 Carbidopa/Levodopa (Sinemet Cr (25/ 100)) 1 tab BID PO Last administered on 03/16/19at 08:46; Admin Dose 1 TAB; Start 03/15/19 at 22:00 Ceftriaxone Sodium 50 ml @ 100 mls/hr Q24H IVPB ; Start 03/16/19 at 13:00 BRUCE BRAXTON MD March 16, 2019 09:12
[2019-03-16] MEDS ORDERED: CEFTRIAXONE 1 GM/50 ML (PMX) 50 ML IVPB SCH (13:00)
[2019-03-16 14:02] VITALS: BP 116/58; PULSE 66; RESP 18
[2019-03-16 19:15] VITALS: BP 112/49; PULSE 67; RESP 20
[2019-03-16] MEDS ORDERED: ALBUTEROL/IPRATROPIUM (NEB) 3 ML AMP HHN PRN (20:30)
[2019-03-16] MEDS: PRAMIPEXOLE 0.25 MG TAB GTB SCH (21:30)
[2019-03-16] MEDS: EZETIMIBE 10 MG TAB PO SCH (21:30)
[2019-03-16] MEDS: ATORVASTATIN 10 MG TAB GTB SCH (21:32)
[2019-03-17 02:00] VITALS: BP 120/56; PULSE 63; RESP 20
[2019-03-17 07:22] VITALS: BP 118/60; PULSE 66; RESP 18
--- NOTE | 2019-03-17 07:54 | CONS ---
Assessment/Plan Assessment/Plan Hospital Course (Demo Recall) 1) pyuria with CoNS and C.alb in urine cx pt has been on hiprex for UTI prevention but it will only work if the urine is acidic and her pH on admission was 7 will change antibiotics to vanco/diflucan for 3 days when back on hiprex suggest Vit C at 6-12gm per day for acidification of the urine unclear if pt has a chronic mayen because hiprex will not work in pt with a chronic mayen 2) cough, O2 desaturation overnight repeat CXR is not impressive will order procalcitonin, cbc for this a.m. and if procalcitonin is elevated will start zosyn 3) dementia 4) dysphagia due to multiple CVA's on g-tube feeds Consultation Date/Type/Reason Admit Date/Time March 15, 2019 at 12:50 Date of Consultation: March 17, 2019 Type of Consult ID Date/Time of Note DATE: 03/17/19 TIME: 07:33 Hx of Present Illness pt was admitted to the hospital due to weakness and pyuria she had been referred over the from doctors office to ER due to low B/P in ER her B/P was not low no reports of N, V, D pt states her breathing is ok but it is known that she has trouble swallowing and is fed thru a g-tube spoke to nurse and she states pt has some desaturations overnight Past Medical History multiple CVA's, dementia, depression, hyperlipidemia, hepatic encephalopathy, melenoma, migraines, trigeminal neuralgia Home Meds Reported Medications Diphenhydramine Hcl* (Diphenhydramine Hcl*) 25 Mg Capsule, 25 MG PO TID PRN for ITCHING, CAP 03/15/19 Nitrofurantoin Monohyd Macrocr* (Macrobid*) 100 Mg Capsr, 100 MG PO DAILY, CAP 03/15/19 Pravastatin Sodium* (Pravastatin Sodium*) 20 Mg Tablet, 20 MG PO HS, TAB 03/15/19 Potassium Chloride* (K-Dur*) 10 Meq Tab.prt.sr, 10 MEQ PO DAILY, TAB 03/15/19 Pramipexole* (Pramipexole*) 0.25 Mg Tablet, 0.25 MG PO HS, TAB 03/15/19 Denosumab (Prolia) 60 Mg/1 Ml Disp.syrin, 60 MG SQ Q 6 MONTHS 03/15/19 Carbidopa-Levodopa* (Sinemet CR*) 50-200 Mg Tabsr, 0.5 TAB PO DAILY, TAB 03/15/19 Ergocalciferol (Vitamin D2) (VITAMIN D2) 50,000 Unit Capsule, 66761 UNIT PO Q28D, CAP 03/15/19 Rifaximin* (Xifaxan*) 550 Mg Tablet, 550 MG PO BID, TAB 03/15/19 Methenamine Hippurate* (Hiprex*) 1 Gm Tab, 1 GM PO BID, TAB 03/15/19 Memantine* (Namenda* XR) 28 Mg Cap.spr.24, 28 MG PO DAILY, #30 TAB 03/15/19 Ezetimibe* (Zetia*) 10 Mg Tablet, 10 MG PO HS, TAB 03/15/19 Duloxetine Hcl* (Cymbalta*) 60 Mg Capsule.dr, 60 MG PO DAILY, CAP 03/15/19 Aspirin* (Aspirin* EC) 325 Mg Tab, 325 MG PO DAILY, TAB 03/15/19 Armodafinil (Nuvigil) 250 Mg Tablet, 250 MG PO DAILY, TAB 03/15/19 Discontinued Reported Medications Loratadine* (Loratadine*) 10 Mg Tablet, 10 MG PO DAILY, #30 TAB 03/15/19 Diphenhydramine Hcl* (Benadryl*) 50 Mg Cap, 50 MG PO QHS PRN for ITCHING, CAP 03/15/19 Docusate Sodium* (Colace*) 100 Mg Capsule, 100 MG PO BID, #60 CAP 03/04/17 Diphenhydramine Hcl* (Benadryl*) 50 Mg Cap, 50 MG PO QHS PRN for SLEEP, CAP 03/04/17 Loratadine* (Claritin*) 10 Mg Tablet, 10 MG PO DAILY, TAB 03/04/17 Pramipexole* (Mirapex*) 1.5 Mg Tablet, 2.5 MG PO DAILY, TAB 03/04/17 Pravastatin Sodium* (Pravastatin Sodium*) 10 Mg Tablet, 10 MG PO HS, TAB 03/04/17 Ezetimibe* (Zetia*) 10 Mg Tablet, 10 MG PO HS, TAB 03/04/17 Duloxetine Hcl* (Cymbalta*) 60 Mg Capsule.dr, 60 MG PO DAILY, CAP 03/04/17 Methenamine Hippurate* (Hiprex*) 1 Gm Tab, 1 GM PO BID, TAB 03/04/17 Nitrofurantoin Monohyd Macrocr* (Macrobid*) 100 Mg Capsr, 100 MG PO DAILY, CAP 03/04/17 Aspirin* (Aspirin*) 325 Mg Tablet, 325 MG PO DAILY, TAB 03/04/17 Memantine* (Namenda* XR) 28 Mg Cap.spr.24, 28 MG PO DAILY, #30 TAB 03/04/17 Armodafinil (Nuvigil) 250 Mg Tablet, 250 MG PO DAILY, TAB 03/04/17 Rifaximin* (Xifaxan*) 550 Mg Tablet, 550 MG PO BID, TAB 03/04/17 Discontinued Scripts Ciprofloxacin Hcl* (Ciprofloxacin Hcl*) 500 Mg Tablet, 500 MG PO BID for 5 Days, TAB Prov:BRUCE VILLALOBOS MD 03/04/17 Medications Current Medications IV Flush (NS 3 ml) 3 ml PER PROTOCOL IV ; Start 03/15/19 at 17:30 Ondansetron HCl (Zofran Inj) 4 mg Q6H PRN IV NAUSEA/VOMITING; Start 03/15/19 at 17:30 Enoxaparin Sodium (Lovenox) 40 mg DAILY SC Last administered on 03/16/19at 08:48; Admin Dose 40 MG; Start 03/16/19 at 09:00 Aspirin (Ecotrin) 325 mg DAILY PO Last administered on 03/16/19at 08:47; Admin Dose 325 MG; Start 03/16/19 at 09:00 Duloxetine HCl (Cymbalta) 60 mg DAILY PO Last administered on 03/16/19at 08:46; Admin Dose 60 MG; Start 03/16/19 at 09:00 Ergocalciferol (Drisdol) 50,000 unit Q28D PO Last administered on 03/16/19at 08:46; Admin Dose 50,000 UNIT; Start 03/16/19 at 09:00 EZETIMIBE (Zetia) 10 mg HS PO Last administered on 03/16/19at 21:30; Admin Dose 10 MG; Start 03/15/19 at 21:00 Acetaminophen (Tylenol Liquid) 650 mg Q6H PRN GTB .PAIN 1-3 OR TEMP; Start 03/15/19 at 23:30 Diphenhydramine HCl (Benadryl) 25 mg TID PRN GTB ITCHING; Start 03/15/19 at 18:30 Pramipexole (Mirapex) 0.25 mg HS GTB Last administered on 03/16/19 21:30; Admin Dose 0.25 MG; Start 03/15/19 at 21:00 Rifaximin (Xifaxan) 550 mg BID GTB Last administered on 03/16/19 21:29; Admin Dose 550 MG; Start 03/15/19 at 21:00 Memantine (Namenda) 10 mg BID GTB Last administered on 03/16/19 21:30; Admin Dose 10 MG; Start 03/15/19 at 21:00 Atorvastatin Calcium (Lipitor) 10 mg HS GTB Last administered on 03/16/19 21:32; Admin Dose 10 MG; Start 03/15/19 at 21:00 Carbidopa/Levodopa (Sinemet Cr (25/ 100)) 1 tab BID PO Last administered on 03/01 21:30; Admin Dose 1 TAB; Start 03/15/19 at 22:00 Ceftriaxone Sodium 50 ml @ 100 mls/hr Q24H IVPB Last administered on 03/16/19 13:18; Admin Dose 100 MLS/HR; Start 03/16/19 at 13:00 Patient Own Medication 1 ea DAILY PO ; Start 03/17/19 at 09:00 Albuterol/ Ipratropium (Duoneb) 3 ml Q6H RESP THERAPY PRN HHN SHORTNESS OF BREATH Last administered on 03/16/19 20:34; Admin Dose 3 ML; Start 03/16/19 at 20:30 Allergies: Coded Allergies: No Known Allergy (Unverified , 03/15/19) Past Surgical History CTS surgery, appy Social History Smoking Status: Former smoker Exam/Review of Systems Exam Vitals Vital Signs Date Temp Pulse Resp B/P (MAP) Pulse Ox O2 O2 Flow FiO2 Time Delivery Rate 03/17/19 98.0 66 18 118/60 94 Nasal 2.0 07:22 (79) Cannula 03/16/19 27 20:35 Intake and Output 5/03/16/19 03/17/19 1515:00 23:00 07:00 IntakeIntake Total 387 ml 820 ml OutputOutput Total 1100 ml 1150 ml 900 ml BalanceBalance -713 ml -330 ml -900 ml Constitutional: alert, other (pt is cooperative but gives limited answers to questions) Head: normocephalic Eyes: nl sclera ENMT: mucosa pink and moist Respiratory: clear to auscultation Cardiovascular: regular rate and rhythm Gastrointestinal: soft, non-tender Results Result Diagram: 03/16/19 0949 03/16/19 0949 Results 24hrs Laboratory Tests Test 03/16/19 09:49 White Blood Count 6.7 # Red Blood Count 4.62 Hemoglobin 13.5 Hematocrit 43.0 Mean Corpuscular Volume 93.1 Mean Corpuscular Hemoglobin 29.2 Mean Corpuscular Hemoglobin Concent 31.4 L Red Cell Distribution Width 13.2 Platelet Count 195 Mean Platelet Volume 10.9 H Immature Granulocytes % 0.300 Neutrophils % 59.8 Lymphocytes % 29.9 Monocytes % 5.3 Eosinophils % 4.0 Basophils % 0.7 Nucleated Red Blood Cells % 0.0 Immature Granulocytes # 0.020 Neutrophils # 4.0 Lymphocytes # 2.0 Monocytes # 0.4 Eosinophils # 0.3 Basophils # 0.1 Nucleated Red Blood Cells # 0.0 Sodium Level 141 Potassium Level 4.3 Chloride Level 109 Carbon Dioxide Level 29 Anion Gap 3 L Blood Urea Nitrogen 19 # Creatinine 0.66 Est Glomerular Filtrat Rate mL/min Glucose Level 85 Calcium Level 7.8 L Phosphorus Level 3.0 Magnesium Level 2.2 Total Bilirubin 0.5 Direct Bilirubin 0.00 Indirect Bilirubin 0.5 Aspartate Amino Transf (AST/SGOT) 33 Alanine Aminotransferase (ALT/SGPT) 26 Alkaline Phosphatase 86 Total Protein 6.4 # Albumin 3.2 L Globulin 3.20 Albumin/Globulin Ratio 1.00 Medications Medication Current Medications IV Flush (NS 3 ml) 3 ml PER PROTOCOL IV ; Start 03/15/19 at 17:30 Ondansetron HCl (Zofran Inj) 4 mg Q6H PRN IV NAUSEA/VOMITING; Start 03/15/19 at 17:30 Enoxaparin Sodium (Lovenox) 40 mg DAILY SC Last administered on 03/16/19at 08:48; Admin Dose 40 MG; Start 03/16/19 at 09:00 Aspirin (Ecotrin) 325 mg DAILY PO Last administered on 03/16/19 08:47; Admin Dose 325 MG; Start 03/16/19 at 09:00 Duloxetine HCl (Cymbalta) 60 mg DAILY PO Last administered on 03/16/19 08:46; Admin Dose 60 MG; Start 03/16/19 at 09:00 Ergocalciferol (Drisdol) 50,000 unit Q28D PO Last administered on 03/16/19 08:46; Admin Dose 50,000 UNIT; Start 03/16/19 at 09:00 EZETIMIBE (Zetia) 10 mg HS PO Last administered on 03/16/19 21:30; Admin Dose 10 MG; Start 03/15/19 at 21:00 Acetaminophen (Tylenol Liquid) 650 mg Q6H PRN GTB .PAIN 1-3 OR TEMP; Start 03/15/19 at 23:30 Diphenhydramine HCl (Benadryl) 25 mg TID PRN GTB ITCHING; Start 03/15/19 at 18:30 Pramipexole (Mirapex) 0.25 mg HS GTB Last administered on 03/16/19 21:30; Admin Dose 0.25 MG; Start 03/15/19 at 21:00 Rifaximin (Xifaxan) 550 mg BID GTB Last administered on 03/16/19 21:29; Admin Dose 550 MG; Start 03/15/19 at 21:00 Memantine (Namenda) 10 mg BID GTB Last administered on 03/16/19 21:30; Admin D ose 10 MG; Start 03/15/19 at 21:00 Atorvastatin Calcium (Lipitor) 10 mg HS GTB Last administered on 03/16/19 21:32; Admin Dose 10 MG; Start 03/15/19 at 21:00 Carbidopa/Levodopa (Sinemet Cr (25/ 100)) 1 tab BID PO Last administered on 03/16/19 21:30; Admin Dose 1 TAB; Start 03/15/19 at 22:00 Ceftriaxone Sodium 50 ml @ 100 mls/hr Q24H IVPB Last administered on 03/16/19 13:18; Admin Dose 100 MLS/HR; Start 03/16/19 at 13:00 Patient Own Medication 1 ea DAILY PO ; Start 03/17/19 at 09:00 Albuterol/ Ipratropium (Duoneb) 3 ml Q6H RESP THERAPY PRN HHN SHORTNESS OF BREATH Last administered on 03/16/19at 20:34; Admin Dose 3 ML; Start 03/16/19 at 20:30 HERO WHITMAN MD March 17, 2019 07:43
[2019-03-17] MEDS ORDERED: VANCOMYCIN IV PER PHARMACY XX SCH (08:00)
[2019-03-17] MEDS ORDERED: VANCOMYCIN 1 GM 250 ML IVPB ONE (09:00)
--- NOTE | 2019-03-17 09:12 | PN ---
Date/Time of Note Date/Time of Note DATE: 03/17/19 TIME: 09:08 Assessment/Plan VTE Prophylaxis Risk score (from [facility])>0 risk: 5 SCD applied (from [facility]): Yes Pharmacological prophylaxis: fondaparinux Lines/Catheters IV Catheter Type (from [facility]): Peripheral IV Urinary Cath still in place: No Assessment/Plan Hospital Course 1. Urinary tract infection. She has had recurrent urinary tract infections and has been on suppressive therapy. She is now on IV antibiotics. Awaiting culture of urine and sensitivities. She was seen by infectious disease specialist, Dr. stearns and he has adjusted her antibiotics. 2. Dehydration with hypotension. She seems overall improved. She has been get ting IV fluids overnight. Labs are ordered for this morning. 3. 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 Her mental status is improved from yesterday. Will start discharge planning. Consider [email or web address] or [facility]. [facility] refused to take her. Therefore will speak to [facility] 5. Dysphagia with gastric feeding tube. . I have ordered aspiration precautions 6. Hyperlipidemia. 7. History of hepatic encephalopathy. She is on Xifaxan for this problem . Result Diagram: 03/17/19 0820 03/16/19 0949 Results 24hrs Laboratory Tests Test 03/16/19 09:49 03/17/19 08:20 White Blood Count 6.7 # 7.3 Red Blood Count 4.62 4.63 Hemoglobin 13.5 13.7 Hematocrit 43.0 43.1 Mean Corpuscular Volume 93.1 93.1 Mean Corpuscular Hemoglobin 29.2 29.6 Mean Corpuscular Hemoglobin Concent 31.4 L 31.8 L Red Cell Distribution Width 13.2 13.1 Platelet Count 195 202 Mean Platelet Volume 10.9 H 10.6 H Immature Granulocytes % 0.300 0.300 Neutrophils % 59.8 66.4 Lymphocytes % 29.9 22.6 Monocytes % 5.3 6.6 Eosinophils % 4.0 3.6 Basophils % 0.7 0.5 Nucleated Red Blood Cells % 0.0 0.0 Immature Granulocytes # 0.020 0.020 Neutrophils # 4.0 4.9 Lymphocytes # 2.0 1.7 Monocytes # 0.4 0.5 Eosinophils # 0.3 0.3 Basophils # 0.1 0.0 Nucleated Red Blood Cells # 0.0 0.0 Sodium Level 141 Potassium Level 4.3 Chloride Level 109 Carbon Dioxide Level 29 Anion Gap 3 L Blood Urea Nitrogen 19 # Creatinine 0.66 Est Glomerular Filtrat Rate mL/min Glucose Level 85 Calcium Level 7.8 L Phosphorus Level 3.0 Magnesium Level 2.2 Total Bilirubin 0.5 Direct Bilirubin 0.00 Indirect Bilirubin 0.5 Aspartate Amino Transf (AST/SGOT) 33 Alanine Aminotransferase (ALT/SGPT) 26 Alkaline Phosphatase 86 Total Protein 6.4 # Albumin 3.2 L Globulin 3.20 Albumin/Globulin Ratio 1.00 Subjective 24 Hr Interval Summary Free Text/Dictation Caitlin is awake and alert. She denies pain. She denies shortness of breath or cough. She did have some pulmonary congestion last night which seems to have resolved. Constitutional: no complaints, improved, disoriented Cardiovascular: no complaints Gastrointestinal: no complaints Genitourinary: no complaints Musculoskeletal: no complaints Neurologic: confusion Exam/Review of Systems Exam Vitals Vital Signs Date Temp Pulse Resp B/P (MAP) Pulse Ox O2 O2 Flow FiO2 Time Delivery Rate 03/17/19 98.0 66 18 118/60 94 Nasal 2.0 07:22 (79) Cannula 03/16/19 27 20:35 Intake and Output 03/16/19 03/16/19 03/17/19 1414:59 22:59 06:59 IntakeIntake Total 387 ml 820 ml OutputOutput Total 1100 ml 1150 ml BalanceBalance -713 ml -330 ml Constitutional: alert, frail Psych: confusion Respiratory: clear to auscultation, normal air movement Cardiovascular: regular rate and rhythm Gastrointestinal: soft, non-tender Musculoskeletal: nl extremities to inspection Results Results 24hrs Laboratory Tests Test 03/16/19 09:49 03/17/19 08:20 White Blood Count 6.7 # 7.3 Red Blood Count 4.62 4.63 Hemoglobin 13.5 13.7 Hematocrit 43.0 43.1 Mean Corpuscular Volume 93.1 93.1 Mean Corpuscular Hemoglobin 29.2 29.6 Mean Corpuscular Hemoglobin Concent 31.4 L 31.8 L Red Cell Distribution Width 13.2 13.1 Platelet Count 195 202 Mean Platelet Volume 10.9 H 10.6 H Immature Granulocytes % 0.300 0.300 Neutrophils % 59.8 66.4 Lymphocytes % 29.9 22.6 Monocytes % 5.3 6.6 Eosinophils % 4.0 3.6 Basophils % 0.7 0.5 Nucleated Red Blood Cells % 0.0 0.0 Immature Granulocytes # 0.020 0.020 Neutrophils # 4.0 4.9 Lymphocytes # 2.0 1.7 Monocytes # 0.4 0.5 Eosinophils # 0.3 0.3 Basophils # 0.1 0.0 Nucleated Red Blood Cells # 0.0 0.0 Sodium Level 141 Potassium Level 4.3 Chloride Level 109 Carbon Dioxide Level 29 Anion Gap 3 L Blood Urea Nitrogen 19 # Creatinine 0.66 Est Glomerular Filtrat Rate mL/min Glucose Level 85 Calcium Level 7.8 L Phosphorus Level 3.0 Magnesium Level 2.2 Total Bilirubin 0.5 Direct Bilirubin 0.00 Indirect Bilirubin 0.5 Aspartate Amino Transf (AST/SGOT) 33 Alanine Aminotransferase (ALT/SGPT) 26 Alkaline Phosphatase 86 Total Protein 6.4 # Albumin 3.2 L Globulin 3.20 Albumin/Globulin Ratio 1.00 Medications Medication Current Medications IV Flush (NS 3 ml) 3 ml PER PROTOCOL IV ; Start 03/15/19 at 17:30 Ondansetron HCl (Zofran Inj) 4 mg Q6H PRN IV NAUSEA/VOMITING; Start 03/15/19 at 17:30 Enoxaparin Sodium (Lovenox) 40 mg DAILY SC Last administered on 03/16/19 08:48; Admin Dose 40 MG; Start 03/16/19 at 09:00 Aspirin (Ecotrin) 325 mg DAILY PO Last administered on 03/16/19 08:47; Admin Dose 325 MG; Start 03/16/19 at 09:00 Duloxetine HCl (Cymbalta) 60 mg DAILY PO Last administered on 03/16/19 08:46; Admin Dose 60 MG; Start 03/16/19 at 09:00 Ergocalciferol (Drisdol) 50,000 unit Q28D PO Last administered on 03/16/19 08:46; Admin Dose 50,000 UNIT; Start 03/16/19 at 09:00 EZETIMIBE (Zetia) 10 mg HS PO Last administered on 03/16/19 21:30; Admin Dose 10 MG; Start 03/15/19 at 21:00 Acetaminophen (Tylenol Liquid) 650 mg Q6H PRN GTB .PAIN 1-3 OR TEMP; Start 03/15/19 at 23:30 Diphenhydramine HCl (Benadryl) 25 mg TID PRN GTB ITCHING; Start 03/15/19 at 18:30 Pramipexole (Mirapex) 0.25 mg HS GTB Last administered on 03/16/19at 21:30; Admin Dose 0.25 MG; Start 03/15/19 at 21:00 Rifaximin (Xifaxan) 550 mg BID GTB Last administered on 03/16/19at 21:29; Admin Dose 550 MG; Start 03/15/19 at 21:00 Memantine (Namenda) 10 mg BID GTB Last administered on 03/16/19 21:30; Admin Dose 10 MG; Start 03/15/19 at 21:00 Atorvastatin Calcium (Lipitor) 10 mg HS GTB Last administered on 03/16/19at 21:32; Admin Dose 10 MG; Start 03/15/19 at 21:00 Carbidopa/Levodopa (Sinemet Cr (25/ 100)) 1 tab BID PO Last administered on 03/16/19at 21:30; Admin Dose 1 TAB; Start 03/15/19 at 22:00 Patient Own Medication 1 ea DAILY PO ; Start 03/17/19 at 09:00 Albuterol/ Ipratropium (Duoneb) 3 ml Q6H RESP THERAPY PRN HHN SHORTNESS OF BREATH Last administered on 03/16/19at 20:34; Admin Dose 3 ML; Start 03/16/19 at 20:30 Fluconazole (Diflucan) 200 mg DAILY GTB ; Start 03/17/19 at 09:00 Vancomycin HCl (Vanco Iv Per Pharmacy) VANCOMYCIN PER PHARM... PER PROTOCOL XX ; Start 03/17/19 at 08:00 Vancomycin HCl 250 ml @ 125 mls/hr ONCE ONCE IVPB ; Start 03/17/19 at 09:00; Stop 03/17/19 at 10:59 BRUCE BRAXTON MD March 17, 2019 09:12
[2019-03-17] MEDS: ENOXAPARIN 40 MG/0.4 ML SYG SC SCH (09:28)
[2019-03-17 09:30] VITALS: Ht 167.6 cm; Wt 48.6 kg
[2019-03-17] MEDS: RIFAXIMIN 550 MG TAB GTB SCH ×2 (09:44→21:02)
[2019-03-17] MEDS: MEMANTINE 10 MG TAB GTB SCH ×2 (09:44→21:02)
[2019-03-17] MEDS: DULOXETINE 30 MG CAP DR PO SCH (10:51)
[2019-03-17] MEDS: ASPIRIN (EC) 325 MG TAB PO SCH (10:51)
[2019-03-17] MEDS: CARBIDOPA/LEVODOPA 25-100 (CR) TAB PO SCH ×2 (10:51→21:02)
[2019-03-17] MEDS: FLUCONAZOLE 200 MG TAB GTB SCH (11:21)
[2019-03-17] MEDS: ARMODAFINIL 250 MG TABLET PO SCH (11:22)
--- NOTE | 2019-03-17 14:45 | RADRPT ---
Vent Rate: 75 bpm RR Interval: 0 msec GA Interval: 146 msec QRS Duration: 66 msec QT Interval: 410 msec QTC Interval: 457 msec P-R-T Mize: 76 - 55 - 82 degrees Normal sinus rhythm Nonspecific T wave abnormality Abnormal ECG Electronically Signed By: [facility]
[2019-03-17 14:57] VITALS: BP 120/62; PULSE 60; RESP 18
[2019-03-17 19:10] VITALS: BP 102/52; PULSE 65; RESP 20
[2019-03-17] MEDS: EZETIMIBE 10 MG TAB PO SCH (21:02)
[2019-03-17] MEDS: ATORVASTATIN 10 MG TAB GTB SCH (21:02)
[2019-03-17] MEDS: PRAMIPEXOLE 0.25 MG TAB GTB SCH (21:02)
[2019-03-18 02:05] VITALS: BP 126/61; PULSE 60; RESP 20
[2019-03-18 07:15] VITALS: BP 102/51; PULSE 56; RESP 14
[2019-03-18] MEDS: FLUCONAZOLE 200 MG TAB GTB SCH (10:02)
[2019-03-18] MEDS: ARMODAFINIL 250 MG TABLET PO SCH (10:02)
[2019-03-18] MEDS: CARBIDOPA/LEVODOPA 25-100 (CR) TAB PO SCH ×2 (10:02→21:24)
[2019-03-18] MEDS: DULOXETINE 30 MG CAP DR PO SCH (10:03)
[2019-03-18] MEDS: MEMANTINE 10 MG TAB GTB SCH ×2 (10:03→21:24)
[2019-03-18] MEDS: ASPIRIN (EC) 325 MG TAB PO SCH (10:04)
[2019-03-18] MEDS: RIFAXIMIN 550 MG TAB GTB SCH ×2 (10:04→21:24)
[2019-03-18] MEDS: ENOXAPARIN 40 MG/0.4 ML SYG SC SCH (10:06)
[2019-03-18] MEDS: VANCOMYCIN 750 MG (PMX) 250 ML IVPB SCH (12:08)
[2019-03-18 14:35] VITALS: BP 109/54; PULSE 63; RESP 15
--- NOTE | 2019-03-18 14:47 | PN ---
Date/Time of Note Date/Time of Note DATE: 03/18/19 TIME: 14:42 Subjective Patient denies fevers, chills, nausea, vomiting, diarrhea, constipation, chest pain, sob, cough, abdominal pain. No overnight events. Objective Vitals Vital Signs Date Temp Pulse Resp B/P (MAP) Pulse Ox O2 O2 Flow FiO2 Time Delivery Rate 03/18/19 98.4 63 15 109/54 96 Nasal 14:35 (72) Cannula 03/18/19 1.5 08:02 03/16/19 27 20:35 Intake and Output 03/17/19 03/17/19 03/18/19 1515:00 23:00 07:00 IntakeIntake Total 357 ml 947 ml 290 ml OutputOutput Total 300 ml BalanceBalance 57 ml 947 ml 290 ml Gen-NAD, resting comfortably HEENT-op clear, MMM CV-rrr, nml s1, s2, no m/r/g Pulm-CTAB, no w/r/r Abdomen-soft, nt, +BS, no rebound or guarding Neuro- CN II-XII intact. No lateralizing features. Alert to person and place, not time/date/year/president or situation Results Result Diagram: 03/18/19 0456 03/18/19 0456 Medications Medications Current Medications IV Flush (NS 3 ml) 3 ml PER PROTOCOL IV ; Start 03/15/19 at 17:30 Ondansetron HCl (Zofran Inj) 4 mg Q6H PRN IV NAUSEA/VOMITING; Start 03/15/19 at 17:30 Enoxaparin Sodium (Lovenox) 40 mg DAILY SC Last administered on 03/18/19at 10:06; Admin Dose 40 MG; Start 03/16/19 at 09:00 Aspirin (Ecotrin) 325 mg DAILY PO Last administered on 03/18/19at 10:04; Admin Dose 325 MG; Start 03/16/19 at 09:00 Duloxetine HCl (Cymbalta) 60 mg DAILY PO Last administered on 03/18/19at 10:03; Admin Dose 60 MG; Start 03/16/19 at 09:00 Ergocalciferol (Drisdol) 50,000 unit Q28D PO Last administered on 03/16/19at 08:46; Admin Dose 50,000 UNIT; Start 03/16/19 at 09:00 EZETIMIBE (Zetia) 10 mg HS PO Last administered on 03/17/19 21:02; Admin Dose 10 MG; Start 03/15/19 at 21:00 Acetaminophen (Tylenol Liquid) 650 mg Q6H PRN GTB .PAIN 1-3 OR TEMP; Start 03/15/19 at 23:30 Diphenhydramine HCl (Benadryl) 25 mg TID PRN GTB ITCHING; Start 03/15/19 at 18:30 Pramipexole (Mirapex) 0.25 mg HS GTB Last administered on 03/17/19 21:02; Admin Dose 0.25 MG; Start 03/15/19 at 21:00 Rifaximin (Xifaxan) 550 mg BID GTB Last administered on 03/18/19 10:04; Admin Dose 550 MG; Start 03/15/19 at 21:00 Memantine (Namenda) 10 mg BID GTB Last administered on 03/18/19 10:03; Admin Dose 10 MG; Start 03/15/19 at 21:00 Atorvastatin Calcium (Lipitor) 10 mg HS GTB Last administered on 03/17/19 21:02; Admin Dose 10 MG; Start 03/15/19 at 21:00 Carbidopa/Levodopa (Sinemet Cr (25/ 100)) 1 tab BID PO Last administered on 03/18/19 10:02; Admin Dose 1 TAB; Start 03/15/19 at 22:00 Patient Own Medication 1 ea DAILY PO Last administered on 03/18/19 10:02; Admin Dose 1 EA; Start 03/17/19 at 09:00 Albuterol/ Ipratropium (Duoneb) 3 ml Q6H RESP THERAPY PRN HHN SHORTNESS OF BREATH Last administered on 03/16/19at 20:34; Admin Dose 3 ML; Start 03/16/19 at 20:30 Fluconazole (Diflucan) 200 mg DAILY GTB Last administered on 03/18/19 10:02; Admin Dose 200 MG; Start 03/17/19 at 09:00 Vancomycin HCl (Vanco Iv Per Pharmacy) VANCOMYCIN PER PHARM... PER PROTOCOL XX ; Start 03/17/19 at 08:00 Vancomycin/Sodium Chloride 250 ml @ 125 mls/hr Q24H IVPB Last administered on 03/18/19at 12:08; Admin Dose 125 MLS/HR; Start 03/18/19 at 11:00 VTE Prophylaxis Risk score (from Ns)>0 risk: 5 [place] [facility] [place] Pharmacological prophylaxis: LMWH VTE Confirmed-Overlap Tx Rcvd Pt Rcvd Overlap Therapy: No Lines/Catheters IV Catheter Type: Peripheral IV Brody in Place: No Assessment/Plan Hospital Course 73 y/o female pmh HLD, multi infarct dementia, dysphagia w/ g tube, depression, osteoporosis admitted 03/15/2019 with recurrent UTI. Assessment/Plan #UTI- -appreciate ID recs, vanc/flucon for now per culture data #H/o hepatic encephalopathy -rifaximin #multifocal dementia- -continue to monitor, reorient #MDD -home meds #HLD -home meds #osteoporosis -outpatient management Dispo-pending clinical stability can likely be discharged to SNF by Wednesday DONALDO VELAZQUEZ MD March 18, 2019 14:47
[2019-03-18 19:41] VITALS: BP 101/50; PULSE 60; RESP 18
[2019-03-18] MEDS: ATORVASTATIN 10 MG TAB GTB SCH (21:24)
[2019-03-18] MEDS: EZETIMIBE 10 MG TAB PO SCH (21:25)
[2019-03-18] MEDS: PRAMIPEXOLE 0.25 MG TAB GTB SCH (21:25)
[2019-03-19 00:02] VITALS: BP 99/50; PULSE 57; RESP 18
[2019-03-19 07:13] VITALS: BP 107/55; PULSE 66; RESP 15
[2019-03-19] MEDS: DULOXETINE 30 MG CAP DR PO SCH (08:46)
[2019-03-19] MEDS: RIFAXIMIN 550 MG TAB GTB SCH ×2 (08:46→20:51)
[2019-03-19] MEDS: CARBIDOPA/LEVODOPA 25-100 (CR) TAB PO SCH ×2 (08:46→20:52)
[2019-03-19] MEDS: FLUCONAZOLE 200 MG TAB GTB SCH (08:46)
[2019-03-19] MEDS: ASPIRIN (EC) 325 MG TAB PO SCH (08:46)
[2019-03-19] MEDS: MEMANTINE 10 MG TAB GTB SCH ×2 (08:46→20:51)
[2019-03-19] MEDS: ARMODAFINIL 250 MG TABLET PO SCH (08:47)
[2019-03-19] MEDS: ENOXAPARIN 40 MG/0.4 ML SYG SC SCH (08:52)
[2019-03-19] MEDS: VANCOMYCIN 750 MG (PMX) 250 ML IVPB SCH (11:13)
--- NOTE | 2019-03-19 13:47 | PN ---
Date/Time of Note Date/Time of Note DATE: 03/19/19 TIME: 13:45 Subjective Patient denies fevers, chills, nausea, vomiting, diarrhea, constipation, chest pain, sob, cough, abdominal pain. No overnight events. Objective Vitals Vital Signs Date Temp Pulse Resp B/P (MAP) Pulse Ox O2 O2 Flow FiO2 Time Delivery Rate 03/19/19 Nasal 2.0 08:15 Cannula 03/19/19 98.7 66 15 107/55 93 07:13 (72) 03/16/19 27 20:35 Intake and Output 03/18/19 03/18/19 03/19/19 1515:00 23:00 07:00 IntakeIntake Total 357 ml 1084 ml 357 ml BalanceBalance 357 ml 1084 ml 357 ml Gen-NAD, resting comfortably HEENT-op clear, MMM CV-rrr, nml s1, s2, no m/r/g Pulm-CTAB, no w/r/r Abdomen-soft, nt, +BS, no rebound or guarding. GT site clean and dry Neuro- CN II-XII intact. No lateralizing features. Alert to person and place, not time/date/year/president or situation Results Result Diagram: 03/18/19 0456 03/18/19 0456 Medications Medications Current Medications IV Flush (NS 3 ml) 3 ml PER PROTOCOL IV ; Start 03/15/19 at 17:30 Ondansetron HCl (Zofran Inj) 4 mg Q6H PRN IV NAUSEA/VOMITING; Start 03/15/19 at 17:30 Enoxaparin Sodium (Lovenox) 40 mg DAILY SC Last administered on 03/19/19at 08:52; Admin Dose 40 MG; Start 03/16/19 at 09:00 Aspirin (Ecotrin) 325 mg DAILY PO Last administered on 03/19/19 08:46; Admin Dose 325 MG; Start 03/16/19 at 09:00 Duloxetine HCl (Cymbalta) 60 mg DAILY PO Last administered on 03/19/19 08:46; Admin Dose 60 MG; Start 03/16/19 at 09:00 Ergocalciferol (Drisdol) 50,000 unit Q28D PO Last administered on 03/16/19 08:46; Admin Dose 50,000 UNIT; Start 03/16/19 at 09:00 EZETIMIBE (Zetia) 10 mg HS PO Last administered on 03/18/19 21:25; Admin Dose 10 MG; Start 03/15/19 at 21:00 Acetaminophen (Tylenol Liquid) 650 mg Q6H PRN GTB .PAIN 1-3 OR TEMP; Start at 23:30 Diphenhydramine HCl (Benadryl) 25 mg TID PRN GTB ITCHING; Start 03/15/19 at 18:30 Pramipexole (Mirapex) 0.25 mg HS GTB Last administered on 03/18/19 21:25; Admin Dose 0.25 MG; Start 03/15/19 at 21:00 Rifaximin (Xifaxan) 550 mg BID GTB Last administered on 03/19/19 08:46; Admin Dose 550 MG; Start 03/15/19 at 21:00 Memantine (Namenda) 10 mg BID GTB Last administered on 03/19/19 08:46; Admin Dose 10 MG; Start 03/15/19 at 21:00 Atorvastatin Calcium (Lipitor) 10 mg HS GTB Last administered on 03/18/19 21:24; Admin Dose 10 MG; Start 03/15/19 at 21:00 Carbidopa/Levodopa (Sinemet Cr (25/ 100)) 1 tab BID PO Last administered on 03/19/19 08:46; Admin Dose 1 TAB; Start 03/15/19 at 22:00 Patient Own Medication 1 ea DAILY PO Last administered on 03/19/19 08:47; Admin Dose 1 EA; Start 03/17/19 at 09:00 Albuterol/ Ipratropium (Duoneb) 3 ml Q6H RESP THERAPY PRN HHN SHORTNESS OF BREATH Last administered on 03/16/19at 20:34; Admin Dose 3 ML; Start 03/16/19 at 20:30 Fluconazole (Diflucan) 200 mg DAILY GTB Last administered on 03/19/19 08:46; Admin Dose 200 MG; Start 03/17/19 at 09:00 Vancomycin HCl (Vanco Iv Per Pharmacy) VANCOMYCIN PER PHARM... PER PROTOCOL XX ; Start 03/17/19 at 08:00 Vancomycin/Sodium Chloride 250 ml @ 125 mls/hr Q24H IVPB Last administered on 03/19/19at 11:13; Admin Dose 125 MLS/HR; Start 03/18/19 at 11:00 VTE Prophylaxis Risk score (from Ns)>0 risk: 7 [place]CD applied ([place] [facility] [place] Yes Lines/Catheters IV Catheter Type: Peripheral IV Mayen in Place: Yes Cont'd mayen catheter reason: urinary retention Assessment/Plan Hospital Course 73 y/o female pmh HLD, multi infarct dementia, dysphagia w/ g tube, depression, osteoporosis admitted 03/15/2019 with recurrent UTI. Assessment/Plan #UTI- -appreciate ID recs, vanc/flucon for now per culture data #H/o hepatic encephalopathy -rifaximin #multifocal dementia- -continue to monitor, reorient #MDD -home meds #HLD -home meds #osteoporosis -outpatient management Dispo-pending clinical stability can likely be discharged to SNF tomorrow DONALDO VELAZQUEZ MD March 19, 2019 13:47
[2019-03-19 14:33] VITALS: BP 105/52; PULSE 62; RESP 15
[2019-03-19 20:04] VITALS: BP 104/51; PULSE 62; RESP 18
[2019-03-19] MEDS: PRAMIPEXOLE 0.25 MG TAB GTB SCH (20:51)
[2019-03-19] MEDS: ATORVASTATIN 10 MG TAB GTB SCH (20:52)
[2019-03-19] MEDS: EZETIMIBE 10 MG TAB PO SCH (20:52)
[2019-03-20 01:42] VITALS: BP 100/52; PULSE 63; RESP 18
[2019-03-20 06:38] VITALS: RESP 18
--- NOTE | 2019-03-20 07:31 | CONS ---
Assessment/Plan Assessment/Plan Hospital Course (Demo Recall) 1) pyuria with CoNS and C.alb in urine cx pt has been on hiprex for UTI prevention but it will only work if the urine is acidic and her pH on admission was 7 will change antibiotics to vanco/diflucan for 3 days when back on hiprex suggest Vit C at 6-12gm per day for acidification of the urine unclear if pt has a chronic mayen because hiprex will not work in pt with a ch ronic mayen 03/20 - d/c diflucan, vanco was stopped yesterday re-start hiprex with vit C at 1gm TID, check u/a in a few days to verify that urine is pH of 6 or less if not then increase dose of Vit. C hiprex will only work with an acid urine 2) cough, O2 desaturation overnight repeat CXR is not impressive will order procalcitonin, cbc for this a.m. and if procalcitonin is elevated will start zosyn 03/20 - procalcitonin was neg no evidence for pneumonia, continue off antibiotics 3) dementia 4) dysphagia due to multiple CVA's on g-tube feeds Consultation Date/Type/Reason Admit Date/Time March 15, 2019 at 12:50 Initial Consult Date 03/17/19 Type of Consult ID Date/Time of Note DATE: 03/20/19 TIME: 07:24 24 HR Interval Summary Free Text/Dictation no new problems pt denies N, V, D, SOB no pain anyplace Exam/Review of Systems Exam Vitals Vital Signs Date Temp Pulse Resp B/P (MAP) Pulse Ox O2 O2 Flow FiO2 Time Delivery Rate 03/20/19 18 96 Room Air 06:38 03/20/19 2.0 04:54 03/20/19 98.4 63 100/52 01:42 (68) 03/16/19 27 20:35 Intake and Output 03/19/19 03/19/19 03/20/19 1515:00 23:00 07:00 IntakeIntake Total 562 ml 580 ml BalanceBalance 562 ml 580 ml Constitutional: alert Eyes: nl sclera Respiratory: clear to auscultation Cardiovascular: regular rate and rhythm Gastrointestinal: soft, non-tender Results Result Diagram: 03/18/19 0456 03/18/19 0456 Medications Medication Current Medications IV Flush (NS 3 ml) 3 ml PER PROTOCOL IV ; Start 03/15/19 at 17:30 Ondansetron HCl (Zofran Inj) 4 mg Q6H PRN IV NAUSEA/VOMITING; Start 03/15/19 at 17:30 Enoxaparin Sodium (Lovenox) 40 mg DAILY SC Last administered on 03/19/19 08:52; Admin Dose 40 MG; Start 03/16/19 at 09:00 Aspirin (Ecotrin) 325 mg DAILY PO Last administered on 03/19/19 08:46; Admin Dose 325 MG; Start 03/16/19 at 09:00 Duloxetine HCl (Cymbalta) 60 mg DAILY PO Last administered on 03/19/19 08:46; Admin Dose 60 MG; Start 03/16/19 at 09:00 Ergocalciferol (Drisdol) 50,000 unit Q28D PO Last administered on 03/16/19 08:46; Admin Dose 50,000 UNIT; Start 03/16/19 at 09:00 EZETIMIBE (Zetia) 10 mg HS PO Last administered on 03/19/19 20:52; Admin Dose 10 MG; Start 03/15/19 at 21:00 Acetaminophen (Tylenol Liquid) 650 mg Q6H PRN GTB .PAIN 1-3 OR TEMP; Start 03/15/19 at 23:30 Diphenhydramine HCl (Benadryl) 25 mg TID PRN GTB ITCHING; Start 03/15/19 at 18:30 Pramipexole (Mirapex) 0.25 mg HS GTB Last administered on 03/19/19 20:51; Adm in Dose 0.25 MG; Start 03/15/19 at 21:00 Rifaximin (Xifaxan) 550 mg BID GTB Last administered on 03/19/19 20:51; Admin Dose 550 MG; Start 03/15/19 at 21:00 Memantine (Namenda) 10 mg BID GTB Last administered on 03/19/19 20:51; Admin Dose 10 MG; Start 03/15/19 at 21:00 Atorvastatin Calcium (Lipitor) 10 mg HS GTB Last administered on 03/19/19 20:52; Admin Dose 10 MG; Start 03/15/19 at 21:00 Carbidopa/Levodopa (Sinemet Cr (25/ 100)) 1 tab BID PO Last administered on 03/19/19at 20:52; Admin Dose 1 TAB; Start 03/15/19 at 22:00 Patient Own Medication 1 ea DAILY PO Last administered on 03/19/19at 08:47; Admin Dose 1 EA; Start 03/17/19 at 09:00 Albuterol/ Ipratropium (Duoneb) 3 ml Q6H RESP THERAPY PRN HHN SHORTNESS OF BREATH Last administered on 03/16/19at 20:34; Admin Dose 3 ML; Start 03/16/19 at 20:30 Ascorbic Acid (Vitamin C) 1,000 mg TID PO ; Start 03/20/19 at 09:00 Nitrofurantoin Macrocrystals (Macrobid) 100 mg QHS PO ; Start 03/20/19 at 21:00 HERO WHITMAN MD March 20, 2019 07:31
[2019-03-20 07:55] VITALS: BP 101/58; PULSE 68; RESP 19
[2019-03-20] MEDS ORDERED: METHENAMINE 1 GM TAB PO SCH (09:00)
[2019-03-20] MEDS: ENOXAPARIN 40 MG/0.4 ML SYG SC SCH (09:08)
[2019-03-20] MEDS: ASPIRIN (EC) 325 MG TAB PO SCH (09:09)
[2019-03-20] MEDS: RIFAXIMIN 550 MG TAB GTB SCH (09:09)
[2019-03-20] MEDS: ASCORBIC ACID 500 MG TAB PO SCH ×2 (09:09→13:05)
[2019-03-20] MEDS: MEMANTINE 10 MG TAB GTB SCH (09:09)
[2019-03-20] MEDS: DULOXETINE 30 MG CAP DR PO SCH (09:09)
[2019-03-20] MEDS: CARBIDOPA/LEVODOPA 25-100 (CR) TAB PO SCH (09:26)
[2019-03-20] MEDS: ARMODAFINIL 250 MG TABLET PO SCH (11:18)
--- NOTE | 2019-03-20 11:53 | PDOCDIS ---
Discharge Instructions DIAGNOSIS Discharge Diagnosis UTI , dehydration CONDITION [id number] Patient Condition: [id number] Fair HOME CARE INSTRUCTIONS: [id number] Diet Instructions: [id number] ACTIVITY: [id number] Activity Restrictions: [id number] Slowly Increase Activity Rest between Activity Weight Bearing [employer] [id number] Bathing Restrictions: [id number] Shower FOLLOW UP/APPOINTMENTS Follow-up Plan Dr Davidson will follow at [facility] BRUCE BRAXTON MD March 20, 2019 11:53
[2019-03-20 14:47] VITALS: BP 102/52; PULSE 66; RESP 18
--- NOTE | 2019-03-20 17:15 | DS ---
DATE OF ADMISSION: 03/15/2019 DATE OF DISCHARGE: HISTORY OF PRESENT ILLNESS AND HOSPITAL COURSE: This 73-year-old female was admitted from my office after she presented with generalized weakness, hypotension and some lethargy. The patient was sent t o the emergency room. She was found to have a urinary tract infection. She was given intravenous fl uids. The patient does have a history of dementia due to multi-infarct state, dysphagia and has a PE G feeding tube in place. The patient was given bolus feeding while in the hospital. She was seen in consultation by Dr. Olaf Bo, a local infectious disease specialist. He adjusted her antibiotics an d placed her on vancomycin and Diflucan for 3 days. She was also started on vitamin C 3 grams a day and restarted on Hiprex to suppress bacteria and prevent further urinary tract infections. The patie nt improved while in the hospital. She will be transferred today to [facility] for further physical therapy and convalescence. Her was informed of this and agreed with t his plan. The patient will continue her current medications MEDICATIONS: That will be continued include: 1. Vitamin C 1000 mg 3 times a day. 2. Hiprex 1 gram twice a day. 3. Aspirin 325 mg a day. 4. Cymbalta 60 mg a day. 5. Vitamin D 50,000 units a month. 6. Acetaminophen 650 mg q.6 hours p.r.n. pain or fever. 7. Carbidopa and levodopa 1 tab of Sinemet CR 25/100 twice a day. 8. Zetia 10 mg a day. 9. Mirapex 0.25 mg a day. 10. Rifaximin 550 mg twice a day. 11. Namenda 28 mg once a day. 12. Atorvastatin 10 mg at bedtime. 13. Benadryl 25 mg 3 times a day p.r.n. itching. I will follow the patient at the [facility]. The patient was in [facility] at the time of discharge. DISCHARGE DIAGNOSES: 1. Urinary tract infection. 2. Hypotension. 3. Dehydration. 4. Multi-infarct dementia. 5. Dysphagia. Dictated By: BRUCE BRAXTON MD, ND/MAUREEN Conf#: [id number] DID#: [id number]
[2019-03-20] MEDS ORDERED: NITROFURANTOIN (SR) 100 MG CAP PO SCH (21:00)
== END 2019-03-20 18:20 | DRG 690 ==
LOC: E/R 09:39 → MS1 12:50
PROVIDERS: ADMIT Internal Medicine; ATTEND Internal Medicine
DX: N39.0 Urinary tract infection, site not specified (principal); E86.0 Dehydration; I95.9 Hypotension, unspecified; E78.5 Hyperlipidemia, unspecified; F01.50 Vascular dementia, unspecified severity, without behavioral disturbance, psychotic disturbance, mood disturbance, and anxiety; F32.9 Major depressive disorder, single episode, unspecified; I69.391 Dysphagia following cerebral infarction; R13.10 Dysphagia, unspecified; K72.90 Hepatic failure, unspecified without coma; M81.0 Age-related osteoporosis without current pathological fracture; R05 Cough; Z93.1 Gastrostomy status; Z87.891 Personal history of nicotine dependence
CPT/HCPCS: 36415; 71045; 80048; 80053; 81001; 83036; 83690; 83735; 84100; 84145; 84484; 85025; 87070; 87086; 93005; 94664; 97110; 97116; 97161; 97530; J0696; J1650; J3370; J7030; J7120